=== PATIENT | female | born 2000 | race Caucasian/White ===

== ENCOUNTER 2019-09-18 23:22 | Emergency (ER) | payer OTHER ==
--- NOTE | 2019-09-18 23:42 | RAD ---
Exam:Right elbow 4 views HISTORY: Pain times several weeks, worsening today. COMPARISON: None FINDINGS: No fracture, cortical irregularity or periosteal reaction. Preserved joint spaces. No joint effusion. IMPRESSION: Unremarkable 4 views right elbow
== END 2019-09-19 01:41 | disposition home or self-care (01) ==
LOC: ERS 23:22
DX: M25.521 Pain in right elbow (principal); X58.XXXA Exposure to other specified factors, initial encounter; Y93.68 Activity, volleyball (beach) (court); Y99.8 Other external cause status